=== PATIENT | male | born 1945 | race Caucasian/White ===

== ENCOUNTER 2017-03-28 10:25 | Outpatient (CLI) | payer OTHER ==
--- NOTE | 2017-03-28 11:25 | DI ---
EXAM: Three views of the right wrist. History: Right wrist pain. Findings: No acute fracture or dislocation. Mild to moderate narrowing of the first carpal metacar pal joint and first MCP joint with osteophytes. Mild narrowing of the radiocarpal joint. Impression: No acute osseous abnormality. Arthritis.
== END 2017-03-28 10:26 | disposition home or self-care (01) ==
LOC: RAD 10:25
PROVIDERS: ATTEND Family Medicine
DX: M25.531 Pain in right wrist (principal)

== ENCOUNTER 2017-10-30 11:53 | Outpatient (CLI) ==
--- NOTE | 2017-10-30 13:32 | DI ---
EXAM: Third digit of the left hand three views HISTORY: Finger pain. FINDINGS: There is at least mild osteoarthritis involving the joints of the digit. No well-defined f racture is seen. Bones appear mildly demineralized. Apparent soft tissue swelling of the mid finger without obvious radiopaque foreign body. IMPRESSION: Arthropathy and soft tissue swelling. No fracture or dislocation is identified.
== END 2017-10-30 11:54 | disposition home or self-care (01) ==
LOC: RAD 11:53
PROVIDERS: ATTEND Family Medicine
DX: M79.645 Pain in left finger(s) (principal)

== ENCOUNTER 2018-02-05 10:33 | Outpatient (CLI) ==
--- NOTE | 2018-02-05 11:49 | DI ---
EXAM: Chest and unilateral ribs HISTORY: Rib pain COMPARISON: None TECHNIQUE: Single view chest and multiple views left ribs were performed. FINDINGS: Lungs are clear. No pleural effusion or pneumothorax. Heart normal in size. Mediastinal contour normal noted atherosclerosis. No acute abnormalities of the bones. Specifically, no left r ib fracture identified. IMPRESSION: 1. No left rib fracture identified. 2. No acute cardiopulmonary process.
== END 2018-02-05 10:34 | disposition home or self-care (01) ==
LOC: RAD 10:33
PROVIDERS: ATTEND Family Medicine
DX: R07.81 Pleurodynia (principal)